=== PATIENT | female | born 1940 | race Caucasian/White ===

== ENCOUNTER 2017-02-22 15:14 | Observation (INO) | payer OTHER ==
--- NOTE | 2017-02-22 15:31 | CPEKG ---
Heart Rate: 56 RR Interval: 1071 P-R Interval: 160 QRSD Interval: 92 QT Interval: 428 QTC Interval: 414 P Marion: 73 QRS Marion: 43 T Wave Marion: 51 EKG Severity - ABNORMAL ECG - EKG Impression: SINUS RHYTHM EKG Impression: VENTRICULAR TRIGEMINY EKG Impression: BORDERLINE ST DEPRESSION, ANTEROLATERAL LEADS Electronically Signed By: Haleigh Park 22-Feb-2017 20:42:32
--- NOTE | 2017-02-22 15:35 | EDPHY ---
H & P Stated Complaint: Sent for cardia work up Time Seen by Provider: 02/22/17 15:33 HPI/ROS: Chief Complaint: Dizziness, irregular heartbeat, chest discomfort HPI: 76-year-old woman presenting with 2 weeks of intermittent dizziness and irregular heartbeat. Patient was seen at [facility] and noted to have an abnormality on her ECG. She has been seen by Dr. Green cardiology and was sent in to the emergency department for further evaluation. Patient denies any chest pain other than she did have some pain with deep breathing when she was seen by Dr. blanchard. Has had some slight shortness of breath when going up stairs. Has not had any syncopal episode. Patient has also been treated for a tendinitis in her left ankle. Denies any calf pain or swelling. No fevers or chills. No cough. No nausea, vomiting or diarrhea. ROS: 10 point Review of Systems is negative except as noted in the HPI. PMH: None Medications: Xanax p.r.n. for sleep Allergies: Cephalexin Social History: No smoking, occasional alcohol, no recreational drug use Family History: non-contributory Physical Exam: Gen: Awake, Alert, No Distress HEENT: Nose: no rhinorrhea Eyes: PERRLA, EOMI Mouth: Moist mucosa Neck: Supple, no JVD Chest: nontender, lungs clear to auscultation Heart: S1, S2 normal, no murmur Abd: Soft, non-tender, no guarding Back: no CVA tenderness, no midline tenderness Ext: no edema, non-tender, bilateral calves are symmetrical. She has no calf tenderness. No Homans sign. She has been on the plantar aspect of her left foot which is some mild tenderness. Skin: no rash Neuro: CN II-XII intact, Sensation grossly intact, Strength 5/5 in bilateral upper and lower extremities - Personal History Current Tetanus/Diphtheria Vaccine: Yes Current Tetanus Diphtheria and Acellular Pertussis (TDAP): Yes - Medical/Surgical History Hx Asthma: Yes Hx Chronic Respiratory Disease: No Hx Diabetes: No Hx Cardiac Disease: No Hx Renal Disease: No Hx Cirrhosis: No Hx Alcoholism: No Hx HIV/AIDS: No Hx Splenectomy or Spleen Trauma: No Other PMH: denies - Social History Smoking Status: Never smoked Constitutional: Initial Vital Signs Temperature (C) 36.4 C 02/22/17 15:17 Heart Rate 60 02/22/17 15:17 Blood Pressure 141/70 H 02/22/17 15:17 O2 Delivery Mode Room Air Allergies/Adverse Reactions: adhesive Allergy (Verified 11/26/13 15:03) erythromycin base [Erythromycin Base] Allergy (Verified 11/11/09 19:04) Penicillins Allergy (Verified 11/11/09 19:03) Home Medications: Medication Instructions Recorded MULTIVITAMINS W-IRON 11/11/09 celeXA 11/11/09 Medical Decision Making - Diagnostics EKG Interpretation: ECG time 3:28 p.m.: Sinus rhythm with a rate of 56. Normal axis, irritable 160. ST depression in V4 through V6. PVCs present. Imaging Results: Imaging Impressions Chest/Thorax CTA 02/22/17 15:35 Impression: 1. No evidence of pulmonary thromboembolic disease. 2. Atherosclerotic normal caliber aorta. No dissection. 3. Clear lungs except for minimal bibasilar linear scarring. Findings discussed with Emergency Department physician, Haleigh Park M.D., on February 22, 2017 at 1645 hours. - Data Points Laboratory Results: Laboratory Results 02/22/17 15:35 02/22/17 15:35 02/22/17 02/22/17 02/22/17 15:51 15:35 15:35 WBC 5.49 10^3/uL 10^3/uL (3.80-9.50) RBC 4.63 10^6/uL 10^6/uL (4.18-5.33) Hgb 14.4 g/dL g/dL (12.6-16.3) Hct 42.9 % % (38.0-47.0) MCV 92.7 fL fL (81.5-99.8) MCH 31.1 pg pg (27.9-34.1) MCHC 33.6 g/dL g/dL (32.4-36.7) RDW 13.5 % % (11.5-15.2) Plt Count 219 10^3/uL 10^3/uL (150-400) MPV 9.9 fL fL (8.7-11.7) Neut % (Auto) 58.1 % % (39.3-74.2) Lymph % (Auto) 31.7 % % (15.0-45.0) [place] % (Auto) 8.2 % % (4.5-13.0) Eos % (Auto) 1.1 % % (0.6-7.6) Baso % (Auto) 0.7 % % (0.3-1.7) Nucleat RBC Rel Count 0.0 % % (0.0-0.2) Absolute Neuts (auto) 3.19 10^3/uL 10^3/uL (1.70-6.50) Absolute Lymphs (auto) 1.74 10^3/uL 10^3/uL (1.00-3.00) Absolute Monos (auto) 0.45 10^3/uL 10^3/uL (0.30-0.80) Absolute Eos (auto) 0.06 10^3/uL 10^3/uL (0.03-0.40) Absolute Basos (auto) 0.04 10^3/uL 10^3/uL (0.02-0.10) Absolute Nucleated RBC 0.00 10^3/uL 10^3/uL (0-0.01) Immature Gran % 0.2 % % (0.0-1.1) Immature Gran # 0.01 10^3/uL 10^3/uL (0.00-0.10) D-Dimer 0.32 ug/mLFEU ug/mLFEU (0.00-0.50) Sodium 142 mEq/L mEq/L (134-144) Potassium 4.0 mEq/L mEq/L (3.5-5.2) Chloride 106 mEq/L mEq/L (97-110) Carbon Dioxide 25 mEq/l mEq/l (22-31) Anion Gap 11 mEq/L mEq/L (8-16) BUN 16 mg/dL mg/dL (7-23) Creatinine 0.8 mg/dL mg/dL (0.6-1.0) Estimated GFR > 60 Glucose 92 mg/dL mg/dL (70-100) Calcium 10.0 mg/dL mg/dL (8.5-10.4) Troponin I < 0.012 ng/mL ng/mL (0-0.034) Departure - Departure Disposition: [facility] Acute Clinical Impression: Palpitations, Abnormal ECG Condition: Fair Referrals: Alba Okeefe MD [Primary Care Provider] - As per Instructions
[2017-02-22] MEDS ORDERED: IOPAMIDOL (ISOVUE 370) 100 ML BTL IV ONE (15:40)
[2017-02-22 15:56] LABS: % IMMATURE GRANULYOCYTES 0.2 % (0.0-1.1); ABSOLUTE IMMATURE GRANULOCYTES 0.01 10^3/uL (0.00-0.10); ADD DIFF? NO; ADD MORPH? NO; ADD SCAN? NO; ATYPICAL LYMPHOCYTE FLAG 10 (0-99); FRAGMENT RBC FLAG 0 (0-99); HEMATOCRIT 42.9 % (38.0-47.0); HEMOGLOBIN 14.4 g/dL (12.6-16.3); LEFT SHIFT FLG 0 (0-99); LIPEMIA HEMOLYSIS FLAG 80 (0-99); MEAN CELL HEMOGLOBIN 31.1 pg (27.9-34.1); MEAN CELL HEMOGLOBIN CONCENTR. 33.6 g/dL (32.4-36.7); MEAN CELL VOLUME 92.7 fL (81.5-99.8); MEAN PLATELET VOLUME 9.9 fL (8.7-11.7); PLATELET CLUMPS FLAG 10 (0-99); PLATELET COUNT 219 10^3/uL (150-400); RED BLOOD CELL COUNT 4.63 10^6/uL (4.18-5.33); RED CELL DISTRIBUTION WIDTH 13.5 % (11.5-15.2)
[2017-02-22 16:03] LABS: ANION GAP 11 mEq/L (8-16); CARBON DIOXIDE 25 mEq/l (22-31); CHLORIDE 106 mEq/L (97-110); CREATININE 0.8 mg/dL (0.6-1.0); GLOMERULAR FILTRATION RATE > 60; GLUCOSE 92 mg/dL (70-100); SODIUM 142 mEq/L (134-144)
[2017-02-22 16:13] LABS: TROPONIN I < 0.012 ng/mL (0-0.034)
[2017-02-22] MEDS ORDERED: ONDANSETRON DISINTEGRATING 4 MG TAB PO PRN (18:04)
[2017-02-22] MEDS ORDERED: ACETAMINOPHEN 325 MG TAB PO PRN (18:04)
[2017-02-22] MEDS ORDERED: ALPRAZolam 0.25 MG TAB PO PRN (19:23)
[2017-02-22] MEDS ORDERED: NON-FORMULARY NEW DRUG (Ranitidine Hcl [Zantac] 150 MG) PO PRN (19:23)
[2017-02-22] MEDS ORDERED: NAPROXEN SODIUM 220 MG TAB PO PRN (19:23)
[2017-02-22] MEDS ORDERED: NON-FORMULARY NEW DRUG (Triamcinolone Acetonide [Nasacort] 1 SPRAY) NS PRN (19:23)
[2017-02-22] MEDS ORDERED: ALBUTEROL 60 PUFFS/8 GM MDI IH PRN (19:23)
[2017-02-22] MEDS ORDERED: FLUTICASONE/SALMETER 100/50MCG DISKUS IH PRN (19:23)
[2017-02-22] MEDS ORDERED: FAMOTIDINE 20 MG TAB PO PRN (19:27)
[2017-02-22] MEDS ORDERED: FLUTICASONE NASAL 120 SPRAYS/16 GM MDI EACHNARE PRN (19:28)
--- NOTE | 2017-02-22 19:35 | GHP ---
[f rep st] HISTORY AND PHYSICAL DATE OF ADMISSION: 02/22/2017 CHIEF COMPLAINT: Palpitations and lightheadedness. HISTORY: This is a 76-year-old female with past medical history of RAD and GERD presenting with complaints of palpitations and pleuritic chest pain, as well as weakness and lightheadedness that have been present intermittently for at least the last week. The patient initially was seen by her primary care physician, Dr. Okeefe, who became concerned that her EKG was abnormal and referred her over to Cardiology. She was seen by Dr. Abdul, in Cardiology, who also felt concerned about both her EKG and her cardiac examination and, therefore, sent her to the emergency department for further evaluation. The patient notes that she has had issues with what she feels are skipped beats for at least the last several days to weeks. She has also felt "wobbly" and notes that it is something she felt in her head, that is sort of like being lightheaded or dizzy, but not exactly. She has not had any fainting, but says the wobbly feeling is sort of like she might faint. She did not initially notice chest pain until Dr. Abdul asked her to take a deep breath and then she did have a brief episode of pleuritic chest pain, which has now resolved. She has had issues with tendinitis of her left ankle that has gotten better. She has not had any recent illness, and denies fevers, chills, nausea, vomiting, cough. PAST MEDICAL HISTORY: RAD, GERD. PAST SURGICAL HISTORY: 1. Volvulus repair. 2. Appendectomy. 3. Two cataract surgeries. FAMILY HISTORY: Father of a stroke in his 70s. He also had emphysema. Mother at age 98. SOCIAL HISTORY: Patient is originally from [place]. She is a never smoker. She drinks rarely. She is and accompanied here by her . REVIEW OF SYSTEMS: A 10-point review of systems obtained and negative, except as per HPI. MEDICATIONS: Include: 1. Multivitamin. 2. Celexa. ALLERGIES: Include penicillin. PHYSICAL EXAMINATION: VITAL SIGNS: BP 156/63, heart rate 59, respiratory rate 18, O2 sat is 96% on room air. Temperature is 36.3. GENERAL APPEARANCE: Well- developed/well-nourished female. She is awake and alert. She is in no acute distress. EYES: Anicteric. HEENT: Oropharynx clear. CARDIOVASCULAR: RRR, a systolic murmur is present. PULMONARY: CTA bilaterally, normal work of breathing. ABDOMEN: Soft, nontender. Nondistended. EXTREMITIES: No clubbing , cyanosis, or edema. SKIN: Warm, dry, well perfused. NEUROPSYCHIATRIC: Oriented, appropriate, pleasant. CLINICAL DATA: Labs reviewed and significant for a normal CBC. D-dimer is 0.32. Chemistry is unremarkable. Troponin is negative. EKG, personally reviewed and interpreted, shows sinus rhythm. There is evidence of ventricular trigeminy and borderline ST depressions in the anterolateral leads. Chest and thorax CT angiogram shows no PE, otherwise normal. ASSESSMENT/PLAN: A 76-year-old female, with no significant past medical history , admitted with palpitations and lightheadedness versus near syncope. 1. Palpitations/near syncope. She does have evidence of PVCs and ventricular trigeminy on EKG, possible etiology. She will be monitored on telemetry. We will obtain serial EKGs and echo, stress test in the am. Consider holter monitor if overnight eval unrevealing. 2. Chest pain in the setting of above and now resolved. It did seem to be pleuritic in nature. A CT angiogram of the chest was negative for PE. Cardiology did request a nuclear stress test, which will be performed in the morning, otherwise as above. 3. Murmur. The patient does have a murmur noted on exam, which patient notes, was also a concern for the section leader. Echocardiogram will be performed in the morning to evaluate for any valvular abnormalities. 4. Hypertension. This in the setting of some anxiety associated with being here in the hospital. We will trend for now. If it remains elevated, she will need to be started on an antihypertensive. 5. Hyperlipidemia. Last LDL about 1 year ago was 126. She is not on any lipid -lowering agents. We will repeat a lipid panel in the morning, and depending on the results of her cardiac workup, she may need initiation of statin therapy. DISPOSITION: Observation status. Suspect she will need less than 48 hours stay for evaluation and management of above. Patient is new to my care. Old records reviewed, summarized as per HPI and Past Medical History. Care plan reviewed with ER physician, including plans for stress testing. Further history obtained from patient's , present at bedside. /[id number]/MODL MTDD
[2017-02-22] MEDS: FLUTICASONE/SALMETER 100/50MCG DISKUS IH SCH (21:56)
[2017-02-23 05:57] LABS: CHOLESTEROL 219 mg/dL (140-220); CHOLESTEROL/HDL RATIO 2.49 RATIO (1.00-4.44); HIGH DENSITY LIPOPROTEIN 88 mg/dL (40-85); LDL/HDL RATIO 1.35 RATIO (1.00-3.22); LOW DENSITY LIPOPROTEIN 119 mg/dL (80-100); NON-HIGH DENSITY LIPOPROTEIN 131 mg/dL (90-129); TRIGLYCERIDE 60 mg/dL (35-135); VERY LOW DENSITY LIPOPROTEINS 12 mg/dL (8-25)
[2017-02-23 06:08] LABS: TROPONIN I < 0.012 ng/mL (0-0.034)
--- NOTE | 2017-02-23 08:31 | HOSPPROG ---
Hospitalist Progress Note Assessment/Plan: #Palpitations: EKG with trigeminy #Near-syncope: TTE, stress pending #Chest pain: abnormal EKG with 1mm ST depression; exercised 5 mins. Awaiting nuclear results. If abnormal, will cath in [facility]. CTA negative for PE #Accelerated HTN: improved today. Trend, add BP meds #HLD: lipids at goal #Disp: DC today if normal nuclear stress test. FU with Dr. Abdul Subjective: palpitations this morning Objective: Vital Signs Temp Pulse Resp BP Pulse Ox 36.8 C 56 L 16 131/66 H 96 02/22/17 23:49 02/23/17 05:46 02/23/17 05:46 02/23/17 05:46 02/23/17 05:46 - Physical Exam Constitutional: no apparent distress Eyes: PERRL Ears, Nose, Mouth, Throat: moist mucous membranes Cardiovascular: bradycardia (with occasional extra beat), edema (no edema) Respiratory: no respiratory distress, no rales or rhonchi Gastrointestinal: normoactive bowel sounds, soft, non-tender abdomen Genitourinary: no bladder fullness Skin: warm Musculoskeletal: full muscle strength Neurologic: AAOx3, CN II-XII Intact Psychiatric: interacting appropriately ICD10 Worksheet Patient Problems: Problems Problem Status Onset Abnormal ECG Acute Palpitations Acute
[2017-02-23 08:58] VITALS: PULSE 54; RESP 18; TEMP 98; O2SAT 97
[2017-02-23] MEDS ORDERED: ASPIRIN 325 MG TAB PO SCH (09:00)
[2017-02-23] MEDS ORDERED: MULTIVITAMINS 1 EACH TAB PO SCH (09:00)
[2017-02-23] MEDS: FLUTICASONE/SALMETER 100/50MCG DISKUS IH SCH (09:26)
--- NOTE | 2017-02-23 10:21 | ECHO ---
[id number] + + [address] : : [place] [address] : : [phone] + + Adult Echocardiographic Report + + :Name: MERCY PLUMMER Date: 02/23/2017 08:25 AM : : Hospital Admission Number: [id number] Loc ation: 142: :: 1940 Gender: Female Height: 63 in : :Age: 76 yrs Race: WH Weight: 134 lb : :Reason For Study: murmur, near syncope : : BSA: 1.6 me ters2 : :History: No previous : + + MMode/2D Measurements \T\ Calculations IVSd: 0.86 cm LVIDd: 3.7 cm FS: 32.1 % LVOT diam: 2.0 cm LVPWd: 0.85 cm LVIDs: 2.5 cm EDV(Teich): LVOT area: 56.3 ml 3.1 cm2 ESV(Teich): 21.9 ml EF(Teich): 61.1 % LVLd ap4: 7.3 cm SV(MOD-sp4): EDV(MOD-sp4): 36.0 ml 63.0 ml LVLs ap4: 6.3 cm ESV(MOD-sp4): 27.0 ml EF(MOD-sp4): 57.1 % Normal Measurement Values: + + :LVIDd (3.5-5.7cm) IVSd (0.6-1.1cm) LVPWd (0.6-1.1cm) Aortic Root (2.0-3.7cm)Left Atrium (1.5-4.0cm): :LV Vol(d) (76-115ml) LV Vol(s) (29-48ml) Ejec Fraction (50-65%)PV Rhett (0.6- 1.2m/s) TV Rhett (0.4-1.0m/s) : :MV E Rhett (0.8-1.0m/s)MV A Rhett (0.3-1.0m/s)LVOT Rhett (0.7-1.2m/s) Asc Ao Rhett ( 0.9-1.8m/s) : + + Doppler Measurements \T\ Calculations MV E max rhett: MV V2 max: Ao V2 max: LV V1 max: 99.2 cm/sec 108.0 cm/sec 129.0 cm/sec 94.0 cm/sec MV A max rhett: MV max PG: Ao max PG: LV V1 max P.0 cm/sec 4.7 mmHg 6.7 mmHg 3.5 mmHg MV E/A: 1.3 MV V2 mean: Ao mean PG: LV V1 mean PG: MV dec time: 51.2 cm/sec 3.0 mmHg 2.0 mmHg 0.26 sec MV mean PG: Ao V2 mean: LV V1 mean: 1.0 mmHg 83.3 cm/sec 61.8 cm/sec MV V2 VTI: 32.6 cm Ao V2 VTI: 32.2 cmLV V1 VTI: 22.1 cm MVA(VTI): 2.1 cm2 SHELBI(I,D): 2.2 cm2 SHELBI(V,D): 2.3 cm2 SV(LVOT): 69.4 ml PA V2 max: TR max rhett: Pulm Sys Rhett: 56.5 cm/sec 242.0 cm/sec 56.8 cm/sec PA max PG: TR max PG: Pulm Huitron Rhett: 1.3 mmHg 23.4 mmHg 50.8 cm/sec RAP systole: Pulm S/D: 1.1 10.0 mmHg RVSP(TR): 33.4 mmHg Left Ventricle The left ventricle is normal in size and function. There is normal left ventricular wall thickness. Ejection Fraction = 60-65%. There is Doppler evidence for diastolic dysfunction. Regional wall motion abnormalities cannot be excluded due to limited visualization. Right Ventricle The right ventricle is normal in size and function. Atria The left atrial size is normal. Right atrial size is normal. The interatrial septum is intact with no evidence for an atrial septal defect. Mitral Valve The mitral valve is normal. There is no mitral valve stenosis. There is trace to mild mitral regurgitation. Tricuspid Valve The tricuspid valve is normal in structure and function. There is no tricuspid stenosis. There is trace tricuspid regurgitation. Right ventricular systolic pressure is 33.4mmHg. Aortic Valve The aortic valve is not well visualized. There is no aortic stenosis. There is no aortic insufficiency. Pulmonic Valve The pulmonic valve is not well visualized. There is no pulmonic valvular stenosis. There is no pulmonic valvular regurgitation. Great Vessels The aortic root is normal size. Pericardium/Pleural There is a fat pad seen. There is no pericardial effusion. Conclusion A complete two-dimensional transthoracic echocardiogram was performed (2D, M-mode, Doppler and color flow Doppler). The study was technically difficult. The left ventricle is normal in size and function. Ejection Fraction = 60-65%. There is Doppler evidence for diastolic dysfunction. There is trace to mild mitral regurgitation. There is trace tricuspid regurgitation. Right ventricular systolic pressure is 33.4mmHg. The aortic valve is not well visualized. Final Reading Physician: Jared Mclean MD electronically signed on 02/23/2017 10:19 AM Ordering Physician: Linn Harmon Performed By: Marly Zuleta
[2017-02-23] MEDS ORDERED: REGADENOSON 0.4 MG/5 ML SYR IVP ONE (11:33)
--- NOTE | 2017-02-23 12:30 | PDCARST ---
CAR Stress Test Results Type of Stress Test: Nuc TM stress test Indication: chest pain/abn ecg Description of Procedure: After informed consent was obtained, pt was established to ECG, BP, HR, and oximetry monitoring. At b/l, pt is in SR with diffuse, ST-T w abn, occasional PVCs, and loss of R wave in ant precordial leads , BP 112/70, and normal O2 sat on RA Pt exercised for a total of 5 minutes on the Zach protocol achieving HR 133 bpm which is 91% of MPHR. There was PVCs/ PVC bigeminy in stage 1 with ablation in stage 2 of exercise. There was 1 mm STD with exercise, persisting into recovery. There were frequent PVCs in recovery, frequent PVC bigeminy. Peak BP 162/80. No cp. Impression: Baseline ST abnormality with 1 mm STD with exercise. Frequent PVCs at baseline, with exercise and in recovery. Conclusion: Abnormal TM stress test. Await nuclear images.
[2017-02-23 13:40] VITALS: BP 139/65
--- NOTE | 2017-02-23 18:03 | GDS ---
[f rep st] DISCHARGE SUMMARY DISCHARGE DIAGNOSES: 1. Palpitations, trigeminy. 2. Near-syncopal episode. 3. Chest pain. 4. Accelerated hypertension. 5. Hyperlipidemia. PROCEDURES: 1. Myocardial perfusion scan 02/23/2017: No underlying ischemia or infarct. 2. Echocardiogram 02/23/2017: Study was technically difficult. The LV is normal size and function , with an EF of 65%. There is Doppler evidence of diastolic dysfunction. There is a trace of MR an d TR. RVSP is 33 mmHg. HISTORY OF PRESENT ILLNESS: Patient is a 76-year-old female with history of reactive airway disease and GERD, presenting with complaints of palpitations and pleuritic chest pain. She also noted incr eased weakness and lightheadedness for the past week intermittently. She was seen by her primary ca re doctor, Dr. Okeefe, who was concerned with her EKG, and referred her to Cardiology. She was seen by Dr. Abdul, who was also concerned, given her cardiac exam, thus was sent to the ER for further cathy luation. She does feel skipped beats for the last several days, and felt wobbly. She did not feel right in h er head, kind of lightheaded. She denies any loss of consciousness. She had a brief episode of ple uritic chest pain with deep breaths. ASSESSMENT AND PLAN: 1. Acute chest pain. Differential includes pulmonary embolus versus musculoskeletal versus acute c oronary syndrome. CTA was negative for PE. There were no wall motion abnormalities on echocardiogr am. The patient initially did exercise treadmill, but was only able to exercise 5 minutes, and had [address] depression, thus underwent Lexiscan stress test. A subsequent Lexiscan stress was negati ve for ischemia or infarct. 2. Palpitations. EKG with trigeminy. Patient to follow up with Dr. Abdul for possible Holter monit or. 3. Presyncope. This is likely secondary to premature ventricular contractions. Again, there was n o evidence of ischemia or pulmonary embolism. 4. Gastroesophageal reflux disease. Continue ranitidine. 5. Reactive airway disease. Continue albuterol. 6. Disposition. Patient is stable for discharge. FOLLOWUP: Dr. Abdul with Cardiology. /[id number]/MODL
--- NOTE | 2017-02-25 08:36 | CPEKG ---
Heart Rate: 54 RR Interval: 1111 P-R Interval: 152 QRSD Interval: 94 QT Interval: 464 QTC Interval: 440 P [place]: 70 QRS [place]: 23 T Wave [place]: 51 EKG Severity - OTHERWISE NORMAL ECG - EKG Impression: SINUS RHYTHM EKG Impression: VENTRICULAR PREMATURE COMPLEX Electronically Signed By: Arsenio Oakes 26-Feb-2017 06:37:46
== END 2017-02-23 18:30 | disposition home or self-care (01) ==
LOC: F1N 17:59
PROVIDERS: ADMIT Internal Medicine; ATTEND Internal Medicine
DX: R00.2 Palpitations (principal); R00.8 Other abnormalities of heart beat; R55 Syncope and collapse; R94.31 Abnormal electrocardiogram [ECG] [EKG]; R07.9 Chest pain, unspecified; R42 Dizziness and giddiness; R01.1 Cardiac murmur, unspecified; I10 Essential (primary) hypertension; E78.5 Hyperlipidemia, unspecified; J45.909 Unspecified asthma, uncomplicated; K21.9 Gastro-esophageal reflux disease without esophagitis; I49.9 Cardiac arrhythmia, unspecified
CPT/HCPCS: 71275; 78451; 93005; 93017; 93306; 99285; A9500; G0378; Q9967; J2785

== ENCOUNTER → 2017-03-13 | Outpatient (CLI) | payer OTHER | LOC: FIMAGING 09:36 | DX: Z12.31 Encounter for screening mammogram for malignant neoplasm of breast (principal) | CPT/HCPCS: G0202 ==

== ENCOUNTER → 2018-03-19 | Outpatient (CLI) | payer OTHER | LOC: FIMAGING 13:56 | PROVIDERS: ATTEND Internal Medicine | DX: Z12.31 Encounter for screening mammogram for malignant neoplasm of breast (principal) ==

== ENCOUNTER → 2019-03-20 | Outpatient (CLI) | payer OTHER | LOC: FIMAGING 15:30 | PROVIDERS: ATTEND Internal Medicine | DX: Z12.31 Encounter for screening mammogram for malignant neoplasm of breast (principal) ==